=== PATIENT | female | born 1955 | race Hispanic/Latino ===

== ENCOUNTER 2018-11-18 20:13 | Emergency (ER) | payer BC, OTHER ==
--- NOTE | 2018-11-18 20:45 | Emergency Department Report ---
Blank Doc - Documentation Documentation: This is a 63-year-old female that presents with right eye swelling s/p fall. Stated was dizzy and fell and landed onto the right eye area. This initial assessment/diagnostic orders/clinical plan/treatment(s) is/are subject to change based on patient's health status, clinical progression and re- assessment by fellow clinical providers in the ED. Further treatment and workup at subsequent clinical providers discretion. Patient/guardians urged not to elope from the ED as their condition may be serious if not clinically assessed and managed. Initial orders include: 1- Patient sent to MAIN ED for further evaluation and treatment 2- CT head/orbit 3- labs
[2018-11-18 21:56] LABS: Basophils # (Auto) 0.1 K/mm3 (0.0-0.1); Basophils % (Auto) 0.8 % (0.0-1.8); Eosinophils # (Auto) 0.3 K/mm3 (0.0-0.4); Hemoglobin 15.1 gm/dl (10.1-14.3); Lymphocytes # (Auto) 1.9 K/mm3 (1.2-5.4); Lymphocytes % (Auto) 28.6 % (13.4-35.0); Mean Corpuscular HGB Conc 34 % (30-34); Mean Corpuscular Volume 98 fl (79-97); Monocytes # (Auto) 0.4 K/mm3 (0.0-0.8); Monocytes % (Auto) 5.9 % (0.0-7.3); Platelet Count 229 K/mm3 (140-440); Red Blood Count 4.61 M/mm3 (3.65-5.03); Red Cell Distribution Width 13.8 % (13.2-15.2)
[2018-11-18 22:08] LABS: INR 0.86 (0.87-1.13)
[2018-11-18 22:09] LABS: Partial Thromboplastin Time 25.8 Sec. (24.2-36.6)
[2018-11-18 22:11] LABS: BUN/Creatinine Ratio 9; Blood Urea Nitrogen 14 mg/dL (7-17); Calcium 9.3 mg/dL (8.4-10.2); Hemolysis Index 21
[2018-11-18 22:23] LABS: Creatine Kinase MB < 1.0 ng/mL (0.0-4.0)
[2018-11-18] MEDS ORDERED: FIORICET PO ONE (22:24)
--- NOTE | 2018-11-18 22:56 | Emergency Department Report ---
ED Dizziness HPI - General Chief Complaint: Eye Problems Stated Complaint: RIGHT EYE INJURY DIZZINESS Time Seen by Provider: 11/18/18 20:44 Source: patient Mode of arrival: Ambulatory Limitations: No Limitations - History of Present Illness Initial Comments: Mrs. Sargent is a 63 yo female with hx of COPD, migraine headache, thyroid disease s/p radiotherapy presents with dizziness. She felt dizzy upon standing. She struck her head on the door jamb. She has right eye swelling hematoma. She recalls getting back to bed. Has dizziness and vertigo. concerned that her thyroid medicine dose is likely too high. The medication was changed 2 weeks ago. MD Complaint: dizziness -: This afternoon, This evening Description: lightheadedness History of Trauma: No Severity: mild Improves With: remaining still Worsens With: movement - Related Data Previous Rx's Medication Instructions Recorded Last Taken Type Albuterol Sulfate [Ventolin HFA] 2 puff IH Q4H PRN #1 hfa.aer.ad 03/02/17 Unknown Rx Butalb/Acetamin/Caff 50-325-40 1 tab PO Q6HR PRN #30 tablet 03/02/17 Unknown Rx [Fioricet] Calcium 600-Vit D3 800 Tab 600 mg PO DAILY #30 03/02/17 Unknown Rx Citalopram Hydrobromide 40 mg PO QHS #30 tablet 03/02/17 Unknown Rx [Citalopram HBr] Diphenoxylate/Atropine [Lomotil] 1 tab PO Q8HR PRN #30 tablet 03/02/17 Unknown Rx Furosemide [Lasix TAB] 20 mg PO QDAY #14 tablet 03/02/17 Unknown Rx Gabapentin [Neurontin] 300 mg PO Q8HR capsule 03/02/17 Unknown Rx Loratadine [Claritin] 10 mg PO AC #30 tablet 03/02/17 Unknown Rx Magnesium Oxide [Mag-Ox] 400 mg PO QDAY #10 tablet 03/02/17 Unknown Rx Pantoprazole [Protonix TAB] 40 mg PO QDAY #30 tablet 03/02/17 Unknown Rx Propranolol HCl [Propranolol HCl 120 mg PO QDAY #30 cap.sa.24h 03/02/17 Unknown Rx ER] Spironolactone [Aldactone] 25 mg PO QAM #30 tablet 03/02/17 Unknown Rx Zolpidem [Ambien] 5 mg PO QHS PRN #5 tablet 03/02/17 Unknown Rx buPROPion [Wellbutrin] 150 mg PO BID #60 tablet 03/02/17 Unknown Rx busPIRone [Buspar] 15 mg PO TID #90 tablet 03/02/17 Unknown Rx clonazePAM 0.5 mg PO TID #30 tablet 03/02/17 Unknown Rx guaiFENesin/DEXTROMETHORPHAN 10 ml PO TID PRN #1 liquid 03/02/17 Unknown Rx [Robitussin Cough-Chest Dm Liq] methIMAzole [Methimazole] 10 mg PO DAILY #30 tablet 03/02/17 Unknown Rx amLODIPine [Norvasc] 5 mg PO QDAY #30 tablet 10/07/17 Unknown Rx oxyCODONE /ACETAMINOPHEN [Percocet 1 tab PO Q6H PRN #20 tablet 10/07/17 Unknown Rx 5/325 mg] Allergies Allergy/AdvReac Type Severity Reaction Status Date / Time ampicillin Allergy Itching Verified 02/22/17 22:58 aspirin Allergy Unknown Verified 02/22/17 18:55 cephalexin monohydrate Allergy Hives Verified 02/22/17 22:59 [From Keflex] hydroxyzine HCl Allergy Rash Verified 02/22/17 22:58 [From Vistaril] hydroxyzine pamoate Allergy Rash Verified 02/22/17 22:58 [From Vistaril] prochlorperazine Allergy Swelling Verified 02/22/17 23:00 [From Compazine] prochlorperazine edisylate Allergy Swelling Verified 02/22/17 23:00 [From Compazine] prochlorperazine maleate Allergy Swelling Verified 02/22/17 23:00 [From Compazine] trimethobenzamide HCl Allergy Itching Verified 02/22/17 22:59 [From Tigan] ED Review of Systems ROS: Stated complaint: RIGHT EYE INJURY DIZZINESS Other details as noted in HPI Comment: All other systems reviewed and negative Constitutional: denies: fever, malaise Respiratory: denies: cough Cardiovascular: denies: chest pain ED Past Medical Hx - Past Medical History Previous Medical History?: Yes Hx Hypertension: Yes Hx Arthritis: Yes (back, hands,knees) Hx Seizures: Yes (YOUNGER YEARS) Hx Asthma: Yes Hx COPD: Yes Additional medical history: Hyperthyroidism-takes methimazole (recently dx 02/2017). "heart murmur and leaky valve (unsure what valve recently dx 02/2017). "radiation to thyroid" 04/2018 - Surgical History Past Surgical History?: Yes Hx Cholecystectomy: Yes - Social History Smoking Status: Never Smoker Substance Use Type: None - Medications Home Medications: Home Medications Medication Instructions Recorded Confirmed Last Taken Type Albuterol Sulfate [Ventolin HFA] 2 puff IH Q4H PRN #1 hfa.aer.ad 03/02/17 10/02/17 Unknown Rx Butalb/Acetamin/Caff 50-325-40 1 tab PO Q6HR PRN #30 tablet 03/02/17 10/02/17 Unknown Rx [Fioricet] Calcium 600-Vit D3 800 Tab 600 mg PO DAILY #30 03/02/17 10/02/17 Unknown Rx Citalopram Hydrobromide 40 mg PO QHS #30 tablet 03/02/17 10/02/17 Unknown Rx [Citalopram HBr] Diphenoxylate/Atropine [Lomotil] 1 tab PO Q8HR PRN #30 tablet 03/02/17 10/02/17 Unknown Rx Furosemide [Lasix TAB] 20 mg PO QDAY #14 tablet 03/02/17 10/02/17 Unknown Rx Gabapentin [Neurontin] 300 mg PO Q8HR capsule 03/02/17 10/02/17 Unknown Rx Loratadine [Claritin] 10 mg PO AC #30 tablet 03/02/17 10/02/17 Unknown Rx Magnesium Oxide [Mag-Ox] 400 mg PO QDAY #10 tablet 03/02/17 10/02/17 Unknown Rx Pantoprazole [Protonix TAB] 40 mg PO QDAY #30 tablet 03/02/17 10/02/17 Unknown Rx Propranolol HCl [Propranolol HCl 120 mg PO QDAY #30 cap.sa.24h 03/02/17 10/02/17 Unknown Rx ER] Spironolactone [Aldactone] 25 mg PO QAM #30 tablet 03/02/17 10/02/17 Unknown Rx Zolpidem [Ambien] 5 mg PO QHS PRN #5 tablet 03/02/17 10/02/17 Unknown Rx buPROPion [Wellbutrin] 150 mg PO BID #60 tablet 03/02/17 10/02/17 Unknown Rx busPIRone [Buspar] 15 mg PO TID #90 tablet 03/02/17 10/02/17 Unknown Rx clonazePAM 0.5 mg PO TID #30 tablet 03/02/17 10/02/17 Unknown Rx guaiFENesin/DEXTROMETHORPHAN 10 ml PO TID PRN #1 liquid 03/02/17 10/02/17 Unknown Rx [Robitussin Cough-Chest Dm Liq] methIMAzole [Methimazole] 10 mg PO DAILY #30 tablet 03/02/17 10/02/17 Unknown Rx amLODIPine [Norvasc] 5 mg PO QDAY #30 tablet 10/07/17 Unknown Rx oxyCODONE /ACETAMINOPHEN [Percocet 1 tab PO Q6H PRN #20 tablet 10/07/17 Unknown Rx 5/325 mg] ED Physical Exam - General Limitations: No Limitations General appearance: alert, in no apparent distress - Head Head exam: Present: normocephalic, other (hematoma above right eye normal globe) - Eye Eye exam: Present: normal appearance, PERRL, EOMI. Absent: scleral icterus, conjunctival injection - ENT ENT exam: Present: mucous membranes moist - Neck Neck exam: Present: normal inspection, full ROM - Respiratory Respiratory exam: Present: normal lung sounds bilaterally. Absent: respiratory distress, wheezes, rales, rhonchi - Cardiovascular Cardiovascular Exam: Present: regular rate, normal rhythm, normal heart sounds. Absent: systolic murmur, diastolic murmur, rubs, gallop - GI/Abdominal GI/Abdominal exam: Present: soft, normal bowel sounds. Absent: distended, tenderness, guarding, rebound - Extremities Exam Extremities exam: Present: normal inspection - Back Exam Back exam: Present: normal inspection - Neurological Exam Neurological exam: Present: alert, oriented X3 - Psychiatric Psychiatric exam: Present: normal affect, normal mood - Skin Skin exam: Present: warm, dry, intact, normal color. Absent: rash ED Course Vital Signs 11/18/18 11/18/18 11/18/18 20:22 21:29 22:00 Temperature 97.7 F Pulse Rate 70 61 57 L Respiratory 16 20 11 L Rate Blood Pressure 115/62 112/58 O2 Sat by Pulse 96 97 95 Oximetry ED Medical Decision Making - Lab Data Result diagrams: 11/18/18 21:41 11/18/18 21:41 Vital Signs - 24 hr 11/18/18 11/18/18 11/18/18 20:22 21:29 22:00 Temperature 97.7 F Pulse Rate 70 61 57 L Respiratory 16 20 11 L Rate Blood Pressure 115/62 112/58 O2 Sat by Pulse 96 97 95 Oximetry Laboratory Results - last 24 hr 11/18/18 11/18/18 11/18/18 21:41 21:41 21:41 WBC 6.7 RBC 4.61 Hgb 15.1 H Hct 45.0 H MCV 98 H MCH 33 H MCHC 34 RDW 13.8 Plt Count 229 Lymph % (Auto) 28.6 Peach % (Auto) 5.9 Eos % (Auto) 5.0 H Baso % (Auto) 0.8 Lymph # 1.9 Peach # 0.4 Eos # 0.3 Baso # 0.1 Seg Neutrophils % 59.7 Seg Neutrophils # 4.0 PT 12.2 INR 0.86 L APTT 25.8 Sodium Potassium Chloride Carbon Dioxide Anion Gap BUN Creatinine Estimated GFR BUN/Creatinine Ratio Glucose Calcium Total Creatine Kinase 34 CK-MB (CK-2) < 1.0 Troponin T 11/18/18 21:41 WBC RBC Hgb Hct MCV MCH MCHC RDW Plt Count Lymph % (Auto) Peach % (Auto) Eos % (Auto) Baso % (Auto) Lymph # Peach # Eos # Baso # Seg Neutrophils % Seg Neutrophils # PT INR APTT Sodium 141 Potassium 4.0 Chloride 100.2 Carbon Dioxide 26 Anion Gap 19 BUN 14 Creatinine 1.5 H Estimated GFR 35 BUN/Creatinine Ratio 9 Glucose 103 H Calcium 9.3 Total Creatine Kinase CK-MB (CK-2) Troponin T < 0.010 - Radiology Data Radiology results: report reviewed CT head no ICH, no facial fracture - Medical Decision Making Mrs. Sargent presents with facial trauma. She exhibited orthostasis according to history. She recalls standing up getting up out of bed with lightheadedness, when walking into the door jamb. No indication of syncope. She has been observed in the emergency department on analysis engineer without arrhythmia. CT head and CT orbits without acute traumatic injury. Discharged home in stable condition. Critical care attestation.: If time is entered above; I have spent that time in minutes in the direct care of this critically ill patient, excluding procedure time. ED Disposition Clinical Impression: Closed head injury, Lightheadedness, Facial hematoma Disposition: DC-01 TO HOME OR SELFCARE Is pt being admited?: No Does the pt Need Aspirin: No Condition: Stable Instructions: Minor Head Injury (ED), Contusion in Adults (ED), Dizziness (ED) Referrals: LILLY AKERS MD [Primary Care Provider] - 3-5 Days
--- NOTE | 2018-11-18 23:20 | Cat Scan Report ---
PROCEDURE: CT HEAD/BRAIN WO CON TECHNIQUE: Spiral CT imaging of the brain was obtained without the use of IV contrast. HISTORY: near syncope COMPARISONS: None FINDINGS: Brain: Brain density appears normal. No evidence of intracranial hemorrhage. No parenchymal hemorr raymundo, mass lesions or mass effect are seen. No abnormal extra-axial fluid collects or masses are see n. Ventricles: Ventricles are normal size and are midline. Moderate-sized scalp hematoma seen overlying the right zygoma and right orbit. Bone Windows: No evidence of skull fracture. Paranasal sinuses: Clear. Mastoid air cells: Clear. IMPRESSION: No evidence of acute intracranial hemorrhage or skull fracture. Moderate-sized scalp hematoma seen overlying the right zygoma and right orbit. This document is electronically signed by Spencer Thomas MD., November 18 2018 11:18:27 PM ET
[2018-11-18] MEDS ORDERED: NORCO 5/325 PO ONE (23:52)
[2018-11-18 23:54] VITALS: BP 110/62
--- NOTE | 2018-11-19 00:16 | Cat Scan Report ---
PROCEDURE: CT ORBIT/EAR/FOSSA WO CON TECHNIQUE: Computerized tomography of the facial bones and soft tissues with axial and coronal secti ons performed from the cranial aspect of the frontal sinuses to the caudal portion of the mandible wi thout contrast material. Automated exposure control, adjustment of mA and/or kV according to patient size, or iterative reconstruction dose optimization techniques were utilized. CT DOSE LENGTH PRODUCT: 565.6 mGycm HISTORY: right eye swelling s/p fall COMPARISONS: None . FINDINGS: Bones: No significant abnormality . Paranasal sinuses: Clear . Soft tissues: There is right periorbital soft tissue swelling. . Other: None . IMPRESSION: There is right periorbital soft tissue swelling. There is no fracture. . This document is electronically signed by Raciel Oliver MD., November 19 2018 12:14:36 AM ET
== END 2018-11-19 00:24 | disposition home or self-care (01) ==
LOC: ED 20:13
DX: S09.90XA Unspecified injury of head, initial encounter (principal); S05.11XA Contusion of eyeball and orbital tissues, right eye, initial encounter; W22.8XXA Striking against or struck by other objects, initial encounter; Y93.89 Activity, other specified; Y92.89 Other specified places as the place of occurrence of the external cause; Y99.8 Other external cause status; I10 Essential (primary) hypertension; M19.90 Unspecified osteoarthritis, unspecified site; J44.9 Chronic obstructive pulmonary disease, unspecified; Z90.49 Acquired absence of other specified parts of digestive tract; Z79.899 Other long term (current) drug therapy; Z88.1 Allergy status to other antibiotic agents; Z88.6 Allergy status to analgesic agent; Z88.8 Allergy status to other drugs, medicaments and biological substances
CPT/HCPCS: 36415; 70450; 70480; 80048; 82550; 82553; 84484; 85025; 85610; 85730; 93005; 93010